=== PATIENT | male | born 1990 | race Caucasian/White ===

== ENCOUNTER → 2017-12-08 08:42 | Outpatient (CLI) | payer OTHER, SELFPAY ==
--- NOTE | 2017-12-08 09:05 | XR_ITS ---
XR chest 2V HISTORY: ITS.REASON: SMOKER ORDERING PHYSICIAN: Milind Ramachandran MD PATIENT AGE: 26 years COMPARISON: 06/06/2015 FINDINGS: The cardiomediastinal silhouette and pulmonary vascularity are within normal limits. The lungs are clear without infiltrates, suspicious nodules, or pleural effusions. No acute bony abnormalities. IMPRESSION: Negative chest, no acute finding
[2017-12-08 09:23] LABS: Basophils # 0.1 K/mm3 (0-0.2); Basophils % 0.8 % (0.1-2.0); Eosinophils # 0.2 K/mm3 (0.0-0.4); Eosinophils % 2.6 % (0.1-12.0); Hematocrit 45.7 % (42.0-52.0); Hemoglobin 15.2 g/dL (14.1-18.0); Lymphocytes # 4.3 K/mm3 (0.7-4.5); Lymphocytes % 47.6 K/mm3 (10-50); Mean Corpuscular HGB Conc 33.2 g/dL (31.8-35.4); Mean Corpuscular Hemoglobin 29.4 pg (27.0-31.2); Mean Corpuscular Volume 88.6 fl (80-94); Mean Platelet Volume 6.9 fl (7.4-10.4); Monocytes # 0.5 K/mm3 (0.1-1.0); Monocytes % 5.9 % (1.7-9.3); Neutrophils # 3.9 K/mm3 (1.8-7.8); Platelet Count 290 K/mm3 (142-424); Red Blood Count 5.16 M/mm3 (4.60-6.20); Red Cell Distribution Width 13.4 % (11.5-17.5)
[2017-12-08 10:28] LABS: Anion Gap 14.9 mEq/L (5-15); Blood Urea Nitrogen 9 mg/dL (7-18); Calcium 8.7 mg/dL (8.5-10.1); Carbon Dioxide 28 mmol/L (21.0-32.0); Chloride 104 mmol/L (98-107); Creatinine,Serum 0.89 mg/dL (0.70-1.30); Estimated Glomerular Filt Rate 104 ml/min (>60); GFR (African American) 126 ML/MIN (>60); Glucose 104 mg/dL (74-106); Potassium 3.9 mmoL/L (3.5-5.1); Sodium 143 mmol/L (136-145)
== END ==
PROVIDERS: PCP Emergency Medicine; Visit Provider Orthopaedic Surgery
DX: Z01.818 Encounter for other preprocedural examination (principal); S62.326A Displaced fracture of shaft of fifth metacarpal bone, right hand, initial encounter for closed fracture
CPT/HCPCS: 36415; 71046; 80048; 85025

== ENCOUNTER → 2017-12-22 08:49 | Outpatient (CLI) | payer OTHER, SELFPAY ==
--- NOTE | 2017-12-22 08:51 | XR_ITS ---
XR hand RT min 3V HISTORY: Follow-up fracture pinning, pain ITS.REASON: 1 week sp pinning rt 5th ORDERING PHYSICIAN: Milind Ramachandran MD PATIENT AGE: 27 years COMPARISON: 12/05/2017 FINDINGS: K wires present stabilizing a distal fifth metacarpal fracture with good alignment with mild palmar and radial angulation of the distal fracture fragment. The pin extends just beyond the cortex of the distal aspect and dorsal aspect of the fifth metacarpal but not into the articular surface. IMPRESSION: Good alignment status post pinning fifth metacarpal fracture
== END ==
PROVIDERS: PCP Emergency Medicine; Visit Provider Orthopaedic Surgery
DX: S62.306A Unspecified fracture of fifth metacarpal bone, right hand, initial encounter for closed fracture (principal)
CPT/HCPCS: 73130

== ENCOUNTER → 2018-01-05 09:01 | Outpatient (CLI) | payer OTHER, SELFPAY ==
--- NOTE | 2018-01-05 09:02 | XR_ITS ---
XR hand RT min 3V HISTORY: Follow up fracture ITS.REASON: follow up RT 5th mc repair. ORDERING PHYSICIAN: Milind Ramachandran MD PATIENT AGE: 27 years COMPARISON: 12/22/2017 FINDINGS: Longitudinal. Remains in place stabilizing the fracture of the fifth metacarpal with good alignment and mild radial and palmar regulation of the distal fracture fragment. Fracture line is still visible. IMPRESSION: Overall no change status post pinning of the fifth metacarpal fracture with good alignment
== END ==
PROVIDERS: PCP Emergency Medicine; Visit Provider Orthopaedic Surgery
DX: S62.306A Unspecified fracture of fifth metacarpal bone, right hand, initial encounter for closed fracture (principal)
CPT/HCPCS: 73130

== ENCOUNTER → 2019-05-03 11:00 | Outpatient (CLI) | payer OTHER, SELFPAY ==
--- NOTE | 2019-05-03 11:00 | MR_ITS ---
PROCEDURE: MR ANKLE LT WO/W CON CLINICAL INDICATION: ankle pain Left ankle sprain, injury with pain anteriorly and laterally, sprain of the ATFL COMPARISON: XR FOOT LT MIN 3V from 03/25/2019 XR ANKLE LT MIN 3V from 03/25/2019 TECHNIQUE: Routine multiplanar multi echo sequences are performed without and with gadolinium enhancement. FINDINGS: The tibiofibular ligaments appear intact. There is slight increased signal intensity of the ATFL on the T2 weighted images which may be due to sprain. A complete tear is not felt to be present. There is also increased T2 signal involving the posterior talofibular ligament consistent with sprain or partial tear of the PT FL. The deltoid ligament appears intact. There is some heterogeneous increased T2 signal involving talus along the posterior aspect of the talus medially and along the neck of the talus as well as the anterior aspect of the talus medially. The navicular has an unremarkable appearance. There is increased T2 signal involving the inferior aspect of the cuboid as well as the distal and lateral aspect of the calcaneus at the calcaneocuboid junction. These areas of increased T2 signal may represent bone bruises. The Achilles tendon and the anterior extensor tendons as well as the posterior flexor tendons appear intact. Small amount of fluid is present posteriorly at the talocalcaneal junction. There is some increased T2 signal involving the prominent posterior talar process with possible fracture at this area. CT may confirm IMPRESSION: 1. Sprain versus partial tear of the PTFL with possible sprain of the ATFL. 2. Bone bruises of the talus, cuboid, and distal aspect of the calcaneus at the calcaneocuboid junction 3. There is some mild bone marrow edema of the prominent posterior talar process with possible nondisplaced fracture at its base. CT may confirm. Small amount fluid is present at this region. Dictated by: Tomás Short MD 05/05/2019 14:01 Electronically signed by Tomás Short MD in [place] 05/05/2019 14:01
== END ==
PROVIDERS: PCP Emergency Medicine; Visit Provider Podiatrist
DX: M25.472 Effusion, left ankle (principal); M25.572 Pain in left ankle and joints of left foot; S93.492A Sprain of other ligament of left ankle, initial encounter; S99.912A Unspecified injury of left ankle, initial encounter
CPT/HCPCS: 73723; A9576

== ENCOUNTER → 2020-06-17 15:04 | Outpatient (CLI) | payer OTHER, SELFPAY ==
--- NOTE | 2020-06-17 15:04 | US_ITS ---
PROCEDURE: US EXTREMITY RT LIMITED CLINICAL INDICATION: knot right thigh COMPARISON: No exams were available for comparison FINDINGS: In the subcutaneous region in the mid right thigh corresponding to the palpable abnormality there is an oval 2.8 x 2.2 by 0.5 cm area I so echogenicity without shadowing consistent with a lipoma. No fluid collections evident. IMPRESSION: Palpable abnormality in the anterior right thigh appears to represent a lipoma Dictated by: Tomás Short MD 06/17/2020 16:53 Tomás Short MD in [place] 06/17/2020 16:53
== END ==
PROVIDERS: PCP Physician Assistant; Visit Provider Physician Assistant
DX: R22.41 Localized swelling, mass and lump, right lower limb (principal)
CPT/HCPCS: 76882

== ENCOUNTER → 2021-03-18 11:04 | Outpatient (CLI) | payer OTHER, SELFPAY | PROVIDERS: PCP Emergency Medicine; Visit Provider Nurse Practitioner | DX: U07.1 COVID-19 (principal) | CPT/HCPCS: C9803; U0003; U0005 ==

== ENCOUNTER 2021-10-28 22:29 | Emergency (ER) | payer OTHER, SELFPAY ==
[2021-10-28 22:29] VITALS: BP 126/74; PULSE 71; RESP 17; TEMP 36.7; O2SAT 98; BMI 21.9
--- NOTE | 2021-10-29 00:24 | HMH.EDSKAF ---
Discharge Plan Disposition Patient Disposition: Home, Self-Care Prescriptions Prescriptions: New minocycline 100 mg Capsule 100 mg PO BID Qty: 20 0RF cephalexin [cephalexin] 500 mg capsule 500 mg PO TID Qty: 30 0RF No Action naproxen 500 mg tablet 500 mg PO Q12H 30 Days Qty: 60 0RF Rx Instructions: administer with food or milk cyclobenzaprine 10 mg tablet 10 mg PO BID PRN (Reason: muscle spasm) Qty: 30 0RF lidocaine [Lidoderm] 5 % adhesive patch,medicated 1 patch TOPICAL DAILY Qty: 30 0RF Rx Instructions: leave on most painful area for up to 12 hrs Referrals Follow up/Referrals: Cameron Stringer MD [Primary Care Provider] - See instructions Clinical Impressions Clinical Impression: Cellulitis Instructions Patient Instructions: DI for Skin Abscess Discharge ED Provider: Cameron Stringer Skin/Abscess/FB HPI General Chief complaint: Skin/Abscess/Foreign Body Stated complaint: RASH on right side Time Seen by Provider: 10/29/21 00:24 Mode of Arrival: Family Vehicle Source of Information: Patient and Medical Record Limitations: No Limitations Description of Symptoms (Recalled from ER Triage Doc. by RN): Pt c/o nodular rad bumps and rash to R armpit. States he had shingles to the area just below it 6-7 yrs ago. Denies n/v/d, fever, or chills. States 1 red bump started yesterday and then several others showed up today. Pt has pain with moving arm d/t irritation to the hard bumps. 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 History of Present Illness HPI narrative: has swelling and rash to rt axilla over the last few days - MD complaint: abscess/boil Onset (ago): day(s) Location: RUE Severity: moderate Associated symptoms: denies other symptoms Related Data Previous Rx's Medication Instructions Recorded cyclobenzaprine 10 mg tablet 10 mg PO BID PRN muscle spasm #30 06/10/20 tabs lidocaine 5 % topical patch 1 patch topical DAILY #30 ea 06/10/20 (Lidoderm) naproxen 500 mg tablet 500 mg PO Q12H 30 days #60 tabs 06/10/20 cephalexin 500 mg capsule 500 mg PO TID #30 caps 10/29/21 minocycline 100 mg capsule 100 mg PO BID #20 caps 10/29/21 Allergies Allergy/AdvReac Type Severity Reaction Status Date / Time No Known Allergies Allergy Verified 06/10/20 10:43 PFSH PFS Social History Smoking Status: Current every day smoker tobacco type: cigarettes packs per day: 1 alcohol intake: current substance use type: former substance user, marijuana, crack/cocaine, painkillers and methamphetamine current occupational status: other Travel in the last 8 weeks: None household members: significant other housing: house 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 current occupational exposures/hazards: No ROS Obtained: Yes All systems reviewed & no additional complaints except as documented Constitutional Constitutional: Denies fever(s) Integumentary/Breasts Skin/Breast: Reports furuncle Physical Exam General General appearance: alert Head Head exam: normocephalic Eye Eye exam: Present PERRL and EOMI ENT ENT exam: Present mucous membranes moist Neck Neck exam: Present trachea midline Respiratory Respiratory exam: Absent respiratory distress Cardiovascular Cardiovascular exam: Present regular rate Abdominal Exam Abdominal exam: Present soft Neurological Exam Neurological exam: Present alert, oriented X3 and CN II-XII intact Psychiatric Psychiatric exam: Present normal affect Skin Skin exam: Present other (rt axilla cellulitis ) Medical Decision Making Medical Records Medical records reviewed: Yes I reviewed the patient's medical records. Tobias Inquiry Pt receiving controlled substance: No Vital Signs: 10/28/21 22:29 Temperature 98.1 F Temperature Source Oral Pulse Rate [Right] 71 Respiratory Rate 17 Blood Pressure [Left Arm] 126/74 Blood Pressure Mean [Left Arm] 91 Blood Pressure Source [Left Arm] Automatic Cuff 02 Sat by Pulse Oximetry 98 Oxygen Delivery Method
[2021-10-29 00:41] VITALS: BP 125/80; PULSE 78; RESP 16; TEMP 36.6; O2SAT 98
[2021-10-29 00:44] VITALS: BP 107/53; PULSE 77; RESP 16; TEMP 36.7; O2SAT 100
== END 2021-10-29 00:45 | disposition home or self-care (01) ==
PROVIDERS: Emergency Provider Emergency Medicine; PCP Emergency Medicine
DX: L03.113 Cellulitis of right upper limb (principal); B95.7 Other staphylococcus as the cause of diseases classified elsewhere; Z16.39 Resistance to other specified antimicrobial drug; Z16.11 Resistance to penicillins
CPT/HCPCS: 87070; 87077; 87186; 87205; 99283

== ENCOUNTER → 2022-09-20 15:30 | Outpatient (CLI) | payer OTHER, SELFPAY ==
[2022-09-20 19:08] LABS: Basophils # 0.1 K/mm3 (0-0.2); Basophils % 0.6 % (0.1-2.0); Eosinophils # 0.3 K/mm3 (0.0-0.4); Eosinophils % 2.9 % (0.1-12.0); Hematocrit 49.1 % (42.0-52.0); Hemoglobin 15.9 g/dL (14.1-18.0); Lymphocytes # 3.6 K/mm3 (0.7-4.5); Mean Corpuscular HGB Conc 32.3 g/dL (31.8-35.4); Mean Corpuscular Hemoglobin 28.1 pg (27.0-31.2); Mean Corpuscular Volume 87.1 fl (80-94); Mean Platelet Volume 8.7 fl (7.4-10.4); Monocytes # 0.4 K/mm3 (0.1-1.0); Monocytes % 4.9 % (1.7-9.3); Neutrophils # 4.6 K/mm3 (1.8-7.8); Neutrophils % 51.5 % (37.0-80.0); Platelet Count 237 K/mm3 (142-424); Red Blood Count 5.64 M/mm3 (4.60-6.20); Red Cell Distribution Width 14.2 % (11.5-17.5); White Blood Count 8.9 K/mm3 (4.8-10.8)
[2022-09-20 19:12] LABS: Chloride 105 mmol/L (98-107); Potassium 4.9 mmoL/L (3.5-5.1); Sodium 140 mmol/L (136-145)
[2022-09-20 19:14] LABS: Blood Urea Nitrogen 16 mg/dl (9-20)
[2022-09-20 19:15] LABS: Alanine Aminotransferase 203 U/L (12-78); Albumin Level 4.3 g/dl (3.5-5.0); Albumin/Globulin Ratio 1.4 (1.1-1.8); Alkaline Phosphatase 117 U/L (38-126); Anion Gap 10.9 mEq/L (5-15); Aspartate Amino Transferase 126 U/L (17-59); Bilirubin,Total 0.3 mg/dl (0.2-1.3); Calcium 9.9 mg/dl (8.4-10.2); Carbon Dioxide 29 mmol/L (22.0-30.0); Chol/HDL Ratio 2.6 (1-3.5); Cholesterol 147 mg/dl (140-200); Estimated Glomerular Filt Rate 114 ml/min (>60); GFR (African American) 137 ML/MIN (>60); Glucose 105 mg/dl (74-100); HDL Cholesterol 56 mg/dl (40-60); Total Protein,Serum 7.3 g/dl (6.3-8.2); Triglycerides 82 mg/dl (30-150); VLDL Cholesterol 16 mg/dL (0-40)
[2022-09-20 19:27] LABS: Direct LDL Cholesterol 78.53 mg/dL (100-129)
[2022-09-20 19:35] LABS: 25-OH Vitamin D, Total 30.5 ng/mL (30-100)
[2022-09-20 19:45] LABS: Thyroid Stimulating Hormone 0.78 uIU/mL (0.465-4.68)
== END ==
PROVIDERS: PCP Emergency Medicine; Visit Provider Emergency Medicine
DX: R53.83 Other fatigue (principal); R11.2 Nausea with vomiting, unspecified; F17.210 Nicotine dependence, cigarettes, uncomplicated; Z79.899 Other long term (current) drug therapy
CPT/HCPCS: 80053; 80061; 82306; 84436; 84443; 85025

== ENCOUNTER → 2022-12-14 13:35 | Outpatient (CLI) | payer OTHER, SELFPAY ==
[2022-12-17 18:10] LABS: HBsAg Screen Negative (Negative); HCV Ab Reactive (Non Reactive); Hep A Ab, IGM Negative (Negative); Hep B Core Ab, IgM Negative (Negative)
== END ==
PROVIDERS: PCP Emergency Medicine; Visit Provider Emergency Medicine
DX: R74.8 Abnormal levels of other serum enzymes (principal)
CPT/HCPCS: 36415; 80074

== ENCOUNTER 2023-09-22 14:07 | Emergency (ER) | payer OTHER, SELFPAY ==
[2023-09-22 14:09] VITALS: BP 117/67; PULSE 84; RESP 20; TEMP 36.6; O2SAT 100; BMI 23.3
[2023-09-22] MEDS: DEXAMETHASONE 4MG TABLET 10 MG PO (14:28)
[2023-09-22] MEDS: METHOCARBAMOL 500MG TABLET 1500 MG PO (14:28)
--- NOTE | 2023-09-22 14:28 | XR_ITS ---
FINAL REPORT CLINICAL HISTORY: neck pain right sided, no injury/trauma COMPARISON: None FINDINGS: Three views of the cervical spine were obtained. There is no fracture present. There is no malalignment. The disc spaces are preserved. The vertebrae are normal in height. IMPRESSION: No acute process. Reviewed, Interpreted and Dictated by Jesus Seymour MD Transcribed by Bea Marin Authenticated and [facility]
[2023-09-22 14:30] VITALS: BP 103/69; PULSE 80; O2SAT 100
[2023-09-22 15:00] VITALS: BP 103/75; PULSE 69; O2SAT 99
--- NOTE | 2023-09-22 15:21 | HMH.EDGENADL ---
Discharge Plan Disposition Patient Disposition: Home, Self-Care Condition: Good Prescriptions Prescriptions: New dexamethasone 6 mg tablet 6 mg PO DAILY Qty: 5 0RF methocarbamol 750 mg tablet 1,500 mg PO TID 5 Days Qty: 30 0RF No Action buprenorphine-naloxone 8-2 mg tablet, sublingual sublingual sertraline 50 mg tablet 50 mg PO DAILY Qty: 30 2RF Referrals Follow up/Referrals: Randy Andrews DO [Primary Care Provider] - See instructions Activity Restrictions/Add. Instructions Additional Instructions/Restrictions: Call your family doctor to establish care for this visit to the emergency department and schedule follow-up within 48 hours to ensure improvement. If you have any worsening of your condition or any other concerning signs or symptoms, return to the emergency department or your primary care doctor for further evaluation. Robaxin can cause you to feel drowsy. Do not drive, operate heavy machinery, or engage in any activity that may make you tired, fall asleep, and because harm to yourself or others while taking this medication. Clinical Impressions Clinical Impression: Acute neck pain Stand Alone Forms Stand Alone Forms: Work/School Release Instructions Patient Instructions: DI for Neck Pain Print Language Print Language: Turkish Discharge ED Provider: Baylee Salas General Adult HPI <Yunior Sales MD - Last Filed: 09/22/23 15:23> General Chief complaint: Neck Pain/Injury Stated complaint: Pain on R side of neck, felt a pop Time Seen by Provider: 09/22/23 14:22 Mode of Arrival: Wheelchair Source of Information: Patient Limitations: No Limitations Description of Symptoms (Recalled from ER Triage Doc. by RN): pt states he was walking across his living room and felt something in the right side of his neck pop and felt sudden sharp pain. pt can feel and move all 4 extremeties, pms intact. denies any truama or injury and has no known medical history and only takes suboxone for his daily medication History of Present Illness HPI narrative: Please note that above description of symptoms, in this electronic medical record under categorization of recalled from ER triage doctor by RN are reflective of an initial nursing assessment, however, is not reflective of my full history and physical exam that was personally taken and clarified. Consequentially, this preceding description of symptoms, which may include the patient's categorized chief complaint in the EMR, do not reflect my personal clinical impression, and the ultimate description of history of present illness and patient stated complaints should be deferred to this section of the note. Unless stated otherwise or congruent with this section of the note, additional signs, symptoms, or incongruence should be interpreted as inaccurate with my clinical impression. Related Data Home Medications ?Medication ?Instructions ?Recorded ?Confirmed buprenorphine 8 mg-naloxone 2 mg tab sublingual 09/20/22 09/20/22 sublingual tablet Previous Rx's ?Medication ?Instructions ?Recorded sertraline 50 mg tablet 50 mg PO DAILY #30 tabs 09/20/22 dexamethasone 6 mg tablet 6 mg PO DAILY #5 tabs 09/22/23 methocarbamol 750 mg tablet 1,500 mg (2 x 750 mg) PO TID 5 09/22/23 days #30 tabs Allergies Allergy/AdvReac Type Severity Reaction Status Date / Time No Known Allergies Allergy Verified 09/20/22 15:10 [facility] <Yunior Sales MD - Last Filed: 09/22/23 15:23> [facility] Disclaimer: The information contained in this section may have been updated after the patient was seen, as this information can be updated by other users. 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 current occupational exposures/hazards: No <Yunior Sales MD - Last Filed: 09/22/23 15:23> ROS Obtained: Yes All systems reviewed & no additional complaints except as documented Physical Exam <Yunior Sales MD - Last Filed: 09/22/23 15:23> General General appearance: alert Head Head exam: atraumatic and normocephalic Eye Eye exam: Present normal appearance, PERRL and EOMI Neck Neck exam: Present normal inspection, full ROM, trachea midline and tenderness (Along musculature of right side as well as midline posteriorly.) Respiratory Respiratory exam: Absent respiratory distress, wheezes, stridor, accessory muscle use or prolonged expiratory phase Cardiovascular Cardiovascular exam: Present other (Pulses equal symmetric in upper and lower extremities) Abdominal Exam Abdominal exam: Present soft; Absent distention, tenderness or pulsatile mass Extremities Exam Extremities exam: Absent edema Neurological Exam Neurological exam: Present alert, oriented X3 and CN II-XII intact; Absent motor sensory deficit Skin Skin exam: Present warm and dry; Absent diaphoresis or erythema Medical Decision Making <Yunior Sales MD - Last Filed: 09/22/23 15:23> Medical Records Medical records reviewed: Yes I reviewed the patient's medical records. Tobias Inquiry Pt receiving controlled substance: No Tobias was queried for this patient: No Vital Signs: 09/22/23 14:09 09/22/23 14:30 09/22/23 15:00 Temperature 97.8 F Temperature Source Oral Pulse Rate 80 69 Pulse Rate [Right Radial] 84 Respiratory Rate 20 Blood Pressure 103/69 L 103/75 L Blood Pressure [Right Arm] 117/67 Blood Pressure Mean 79 82 Blood Pressure Mean [Right Arm] 83 02 Sat by Pulse Oximetry 100 100 99 Oxygen Delivery Method Room Air 09/22/23 16:46 Temperature 98.0 F Temperature Source Pulse Rate 65 Pulse Rate [Right Radial] Respiratory Rate 18 Blood Pressure 112/75 Blood Pressure [Right Arm] Blood Pressure Mean Blood Pressure Mean [Right Arm] 02 Sat by Pulse Oximetry Oxygen Delivery Method Room Air Orders (Tests/Meds): ED MEDICATIONS Discontinued Medications Generic Name Dose Route Start Last Admin Trade Name Jayden PRN Reason Stop Dose Admin Dexamethasone 10 mg 09/22/23 14:22 09/22/23 14:28 Dexamethasone 4mg Tablet PO 09/22/23 14:23 10 mg ONCE ONE Administration Methocarbamol 1,500 mg 09/22/23 14:22 09/22/23 14:28 Methocarbamol 500mg Tablet PO 09/22/23 14:23 1,500 mg ONCE ONE Administration ORDERS Category Date Time Status XR cervical spine 3V Stat Exams 09/22/23 14:28 Taken Medical Decision Narrative: 32-year-old male no relevant medical history presenting with neck pain. Patient states that he turned his head, felt a pop, immediately had pain today just for arrival. Does not radiate, mild in intensity, made worse with turning his head to the right. No numbness, tingling, weakness in his hands or legs, no bowel or bladder dysfunction. Patient did not fall or injure it. No syncopal episode. Came in for further evaluation, has not taken anything for the pain. History obtained with patient. On arrival, patient hemodynamic stable, very well-appearing. Turning his head to the right causes muscular tenderness on the lateral aspect of his neck on the right side. Midline cervical spinal tenderness, no evidence of deformity. Neurologically intact and ambulatory. Patient given Robaxin and Decadron. Images independently interpreted and negative for any acute bony abnormality, but final read pending at time of handoff to oncoming physician. Field Marketing Specialist disclaimer Much of this encounter note is an electronic supervising broker spoken language to printed text. Electronic supervising broker of the spoken language may permit errors. Although I have reviewed the note, some errors may still exist. <Baylee Salas, DO - Last Filed: 09/22/23 22:32> Vital Signs: 09/22/23 14:09 09/22/23 14:30 09/22/23 15:00 Temperature 97.8 F Temperature Source Oral Pulse Rate 80 69 Pulse Rate [Right Radial] 84 Respiratory Rate 20 Blood Pressure 103/69 L 103/75 L Blood Pressure [Right Arm] 117/67 Blood Pressure Mean 79 82 Blood Pressure Mean [Right Arm] 83 02 Sat by Pulse Oximetry 100 100 99 Oxygen Delivery Method Room Air 09/22/23 16:46 Temperature 98.0 F Temperature Source Pulse Rate 65 Pulse Rate [Right Radial] Respiratory Rate 18 Blood Pressure 112/75 Blood Pressure [Right Arm] Blood Pressure Mean Blood Pressure Mean [Right Arm] 02 Sat by Pulse Oximetry Oxygen Delivery Method Room Air Orders (Tests/Meds): ED MEDICATIONS Discontinued Medications Generic Name Dose Route Start Last Admin Trade Name Jayden PRN Reason Stop Dose Admin Dexamethasone 10 mg 09/22/23 14:22 09/22/23 14:28 Dexamethasone 4mg Tablet PO 09/22/23 14:23 10 mg ONCE ONE Administration Methocarbamol 1,500 mg 09/22/23 14:22 09/22/23 14:28 Methocarbamol 500mg Tablet PO 09/22/23 14:23 1,500 mg ONCE ONE Administration ORDERS Category Date Time Status XR cervical spine 3V Stat Exams 09/22/23 14:28 Taken Medical Decision Narrative: 32-year-old male no relevant medical history presenting with neck pain. Patient states that he turned his head, felt a pop, immediately had pain today just for arrival. Does not radiate, mild in intensity, made worse with turning his head to the right. No numbness, tingling, weakness in his hands or legs, no bowel or bladder dysfunction. Patient did not fall or injure it. No syncopal episode. Came in for further evaluation, has not taken anything for the pain. History obtained with patient. On arrival, patient hemodynamic stable, very well-appearing. Turning his head to the right causes muscular tenderness on the lateral aspect of his neck on the right side. Midline cervical spinal tenderness, no evidence of deformity. Neurologically intact and ambulatory. Patient given Robaxin and Decadron. Images independently interpreted and negative for any acute bony abnormality, but final read pending at time of handoff to oncoming physician. Field Marketing Specialist disclaimer Much of this encounter note is an electronic supervising broker spoken language to printed text. Electronic supervising broker of the spoken language may permit errors. Although I have reviewed the note, some errors may still exist. Josue DO: X-rays do not demonstrate any acutely concerning abnormality. Patient resting company on my assessment and is neurologically intact. I feel that he is appropriate for discharge home. Previous provider sent him in prescriptions. Patient was discharged after all questions were answered. Critical Care <Yunior Sales MD - Last Filed: 09/22/23 15:23> Critical Care Time Critical Care Time: No
[2023-09-22 16:46] VITALS: BP 112/75; PULSE 65; RESP 18; TEMP 36.7; O2SAT 100
== END 2023-09-22 16:47 | disposition home or self-care (01) ==
PROVIDERS: Emergency Provider Emergency Medicine; PCP Internal Medicine
DX: M54.2 Cervicalgia (principal)
CPT/HCPCS: 72040; 99283; J8540

== ENCOUNTER 2024-11-13 14:58 | Emergency (ER) | payer SELFPAY ==
[2024-11-13 15:05] VITALS: BP 113/70; PULSE 70; RESP 18; TEMP 36.9; O2SAT 100; BMI 22.6
--- NOTE | 2024-11-13 15:11 | ED_ITS ---
<Statement entered by Susan Cardenas DO - 11/15/24 23:40> I was consulted by the BON, and we discussed the complexity of problems being addressed. I approve the treatment and management plan for this patient's care in the emergency department, thus performing a substantial portion of the medical decision making. Susan Cardenas DO Discharge Plan Disposition Patient Disposition: Home, Self-Care Condition: Good Prescriptions Prescriptions: No Action buprenorphine-naloxone 8-2 mg tablet, sublingual sublingual sertraline 50 mg tablet 50 mg PO DAILY Qty: 30 2RF dexamethasone 6 mg tablet 6 mg PO DAILY Qty: 5 0RF methocarbamol 750 mg tablet 1,500 mg PO TID 5 Days Qty: 30 0RF Referrals Follow up/Referrals: Cris Rosenthal APRN [Primary Care Provider, Medical] - See instructions Activity Restrictions/Add. Instructions Additional Instructions/Restrictions: Sutures will need to be removed in the next 7 to 10 days. You were evaluated on an emergency basis. It is very important that you follow- up with your primary care provider and any specialist who we discussed within the next 2 days in order to better assess your health more comprehensively. For example, incidental findings on imaging or laboratory results that were performed today may be discovered, which do not require immediate medical care, but may impact your health in the future. If your symptoms worsen or persist, please return to the emergency department immediately for reassessment. Take all medications as prescribed. In queue for allowing me to participate in your health care, and I hope you feel better soon. Clinical Impressions Clinical Impression: Laceration of forearm, left Instructions Patient Instructions: DI for Laceration Repair Print Language Print Language: Spanish Discharge ED Provider: Susan Cardenas General Adult HPI General Chief complaint: Wound/Laceration Stated complaint: AO 11/13/24 Cut on L Forearm Time Seen by Provider: 11/13/24 15:11 Mode of Arrival: Ambulatory Source of Information: Patient Description of Symptoms (Recalled from ER Triage Doc. by RN): Pt presents for a laceration to his left forearm. Pt states a piece of glass cut his arm. T-dap is not utd History of Present Illness HPI narrative: 33-year-old male presents the emergency department complaints of laceration to his left forearm. He reports that he was taking out some trash when a piece of glass was poked into the bag and cut his arm. He states his tetanus is not up-to-date. Related Data Home Medications ?Medication ?Instructions ?Recorded ?Confirmed buprenorphine 8 mg-naloxone 2 mg tab sublingual 09/20/22 sublingual tablet Previous Rx's ?Medication ?Instructions ?Recorded sertraline 50 mg tablet 50 mg PO DAILY #30 tabs 08/23 03/15 dexamethasone 6 mg tablet 6 mg PO DAILY #5 tabs methocarbamol 750 mg tablet 1,500 mg (2 x 750 mg) PO T ID 5 09/22/23 days #30 tabs Allergies Allergy/AdvReac Type Severity Reaction Status Date / Time No Known Allergies Allergy Verified 09/20/22 15:10 [facility] Disclaimer: The information contained in this section may have been updated after the patient was seen, as this information can be updated by other users. 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 current occupational exposures/hazards: No Have you lived/traveled outside [place] in past 30 days?: No Contact w/someone who lives/traveled outside US past 30 days?: No Exposure to someone with infectious disease in past 14 days?: No Do you have a fever (greater than 100.4 F or 38 C)?: No Have you tested positive for COVID-19?: No Exposed to someone with COVID-19 in past 14 days?: No Do you have a sore throat?: No Do you have a cough?: No Do you have any weakness?: No Do you have any diarrhea?: No Are you experiencing any unusual bleeding?: No Do you have any muscle aches/pain?: No Do you have any abdominal pain?: No Are you experiencing loss of taste or smell?: No Other Medical History Have you received the Flu Vaccine for this season: No Have you received the Pneumonia Vaccine: No ROS Obtained: Yes other Integumentary/Breasts Skin/Breast: Reports wounds Physical Exam Narrative Physical exam: General: Awake, aware, in no acute distress HEENT: Normocephalic, no evidence of trauma CV: RRR, no murmurs, rubs, or gallops Pulm: CTA bilaterally with no rhonchi, rales, wheezes ABD: Nontender, no swelling, guarding, or rebound tenderness Psych, appropriate mood and affect Skin: Patient has an approximate 2 cm linear laceration with minimal bleeding to his left forearm. Sensations intact with 2+ pulses. No foreign bodies noted. General General appearance: alert Respiratory Respiratory exam: Present normal lung sounds bilaterally Cardiovascular Cardiovascular exam: Present regular rate Neurological Exam Neurological exam: Present alert Medical Decision Making Medical Records Screening: Per USPSTF and CDC recommendations, given the prevalence of disease in our region, it is our hospital?s policy to screen for HIV and viral Hepatitis for all patients aged 18 and over and those with ongoing risk factors. Tobias Inquiry Pt receiving controlled substance: No Vital Signs: 11/13/24 15:05 Temperature 98.5 F Temperature Source Oral Pulse Rate [Right] 70 Respiratory Rate 18 Blood Pressure [Right Arm] 113/70 Blood Pressure Mean [Right Arm] 84 02 Sat by Pulse Oximetry 100 Oxygen Delivery Method Room Air Orders (Tests/Meds): ED MEDICATIONS Discontinued Medications Generic Name Dose Route Start Last Admin Trade Name Freq PRN Reason Stop Dose Admin Lidocaine HCl 10 ml 11/13/24 15:12 11/13/24 15:23 Lidocaine 1% 10ml Mdv IJ 11/13/24 15:13 10 ml ONCE ONE Administration Tetanus/Reduced Diphtheria/Acell Pertussis 0.5 ml 11/13/24 15:12 11/13/24 15:24 Tet/Diphth/Pert-Adult 0.5ml Syringe IM 11/13/24 15:13 0.5 ml .ONCE ONE Administration Medical Decision Narrative: Initial impression of presenting illness: 33-year-old male presents emergency department with complaints of laceration to his left forearm. He states that he was taking out some trash that had a piece of glass poking through when it cut his arm. He reports his tetanus is not up-to-date Differential diagnosis includes but is not limited to: Laceration, foreign body Patient arrives hemodynamically stable, afebrile, without respiratory distress with vital signs interpreted by myself. Initial physical exam reveals an approximate 2 cm linear laceration to patient's left forearm with minimal bleeding. Sensation intact with 2+ pulses. No foreign bodies noted. Rest of exam is unremarkable Initial diagnostic plan: Adacel booster, wound care and closure Interventions in the ED: Wound care and closure was completed without difficulty and patient tolerated well. His tetanus was also boostered. Disposition: Advised patient that his sutures will need to stay in place for the next 7 to 10 days. Strict attempt avoid activities where his arm will be submerged in water however showering was acceptable. Advised him he may use Tylenol and ibuprofen as needed for pain control. I also recommended he monitor the wound for signs of infection and return to the emergency department or follow-up with his PCP if the symptoms should arise. Patient is agreeable to the plan of care. Patient made aware of findings and had a detailed discussion with symptomatic care and return precautions, patient voiced understanding. Procedures Laceration Laceration 1: Site: upper extremity Side (If applicable): left Size (cm): 2 Description: linear and clean Local Anesthetic: lidocaine 1% Amount of anesthesia used (mL): 2 Pre-repair: irrigated extensively Size (cm): 4-0 Number of sutures: 3 Technique: simple, interrupted Critical Care Critical Care Time Critical Care Time: No
--- OUTSIDE RECORDS SUMMARY | 2024-11-13 15:22 | XMS_ITS | Clinical Summary ---
Author Organization [facility] Address [address] [place], [place] [id number] Phone [email or web address] Care Team Providers Care Portfolio Architect Name Role Phone Unavailable Primary Care Provider Unavailabl e Allergies No known active allergies Medications Buprenorphine HCl-Naloxone HCl (SUBOXONE SL)Indications:O pioid Dependence Place under the tongue. Active Active Problems Problem Noted Date Diagnosed Date Opioid use disorder, moderat e, in early remission, on maintenance therapy, dependence 04/18/2023 Visit for occupational health examination 2023 Social History Tobacco Use Types Packs/Day Years Used Date Smoking Tobacco: Every Day Cigarettes Smokeless Tobacco: Never Tobacco Cessation:Ready to Q uit: Not Asked; Counseling Given: Not Answered Depression Answer Date Recorded PHQ Total Score 0 04/18/2023 Sex and Gender Information Value Date Recorded Sex Assigned at Not on file Legal Sex Male 4:33 PM [employer] Gender Identity Not on file Sexual Orientation Not on file Last Filed Vital Signs Vital Sign Reading Time Taken Comments Blood Pressure 116/72 04/18/2023 3:30 PM EST Pulse 80 04/18/2023 3:30 PM EST Temperature 37.1 C (98.7 F) 04/18/2023 3:30 PM EST Respiratory Rate - - Oxygen Saturation 95% 04/18/2023 3:30 PM EST Inhaled Oxygen Concentration - - Weight 64 kg (141 lb 3.2 oz) 04/18/2023 3:30 PM EST Height 167.6 cm (5' 6 ) 04/18/2023 3:30 PM EST Body Mass Index 22.79 04/18/2023 3:30 PM EST Plan of Treatment Health Maintenance Due Date Last Done Comments Dental Cleaning/Exam 1991 Polio Immunization (2 of 3 - 4-dose series) 07/25/1996 06/27/1996 Tetanus Diphtheria and Pertussis Immunization (3 - Tdap) 10/22/2004 10/21/2004, 06/27/1996 HPV Immunization (1 - Male 3-dose series) 12/10/2006 Covid-19 Immunization (1 - season) 2024 Influenza Immunization (#1) 2024 Hepatitis B Immunization Completed 997, 11/15/1995, 10/13/1995 Hepatitis A Immunization Aged Out 08/15/2018 No longer eligible based on patient's age to complete this topic HIB Immunization Aged Out No longer e ligible based on patient's age to complete this topic Pneumococcal Immunization Aged Out No longer eligible based on patient's age to complete this topic Varicella Immunization Aged Out No lo nger eligible based on patient's age to complete this topic Insurance
[2024-11-13] MEDS: LIDOCAINE 1% 10ML MDV 10 ML IJ (15:23)
[2024-11-13] MEDS: TET/DIPHTH/PERT-ADULT 0.5ML SYRINGE 0.5 ML IM (15:24)
[2024-11-13 15:35] VITALS: BP 120/72; PULSE 68; RESP 18; TEMP 36.9; O2SAT 99
== END 2024-11-13 15:36 | disposition home or self-care (01) ==
PROVIDERS: Emergency Provider Student in an Organized Health Care Education/Training Program; PCP Nurse Practitioner Family
DX: S51.812A Laceration without foreign body of left forearm, initial encounter (principal); W25.XXXA Contact with sharp glass, initial encounter
CPT/HCPCS: 12001; 90471; 90715; 99283; J2003